=== PATIENT | female | born 1940 | race Two or more races ===

== ENCOUNTER 2018-02-15 07:52 | Outpatient (CLI) | END 2018-02-15 07:53 | disposition home or self-care (01) | LOC: NONPT 07:52 | PROVIDERS: ATTEND Emergency Medicine | DX: R30.0 Dysuria (principal); R35.0 Frequency of micturition | CPT/HCPCS: 81001 ==

== ENCOUNTER 2018-02-18 08:24 | Outpatient (CLI) | payer OTHER | END 2018-02-18 08:25 | disposition home or self-care (01) | LOC: LAB 08:24 | PROVIDERS: ATTEND Emergency Medicine | DX: R30.0 Dysuria (principal); R35.0 Frequency of micturition | CPT/HCPCS: 87086; 87186 ==